=== PATIENT | female | born 2000 | race Caucasian/White ===

== ENCOUNTER 2018-08-29 17:22 | Emergency (ER) | payer MEDICAID ==
[~2018-08-29] VITALS: Ht 154.9 cm; Wt 56.8 kg
[2018-08-29 17:27] VITALS: BP 114/78
[2018-08-29] MEDS ORDERED: CEPH500C5 PO (17:40)
[2018-08-29] MEDS ORDERED: SULF1TAB49 PO (17:40)
[2018-08-29] MEDS ORDERED: IBUP-1984 PO (17:41)
== END 2018-08-29 18:00 | disposition home or self-care (01) ==
LOC: ER 17:23
DX: L00 Staphylococcal scalded skin syndrome (principal); F17.200 Nicotine dependence, unspecified, uncomplicated; V89.2XXA Person injured in unspecified motor-vehicle accident, traffic, initial encounter; Y93.89 Activity, other specified; Y92.89 Other specified places as the place of occurrence of the external cause; Y99.8 Other external cause status
CPT/HCPCS: 99283

== ENCOUNTER 2018-12-11 23:42 | Emergency (ER) | payer MEDICAID ==
[~2018-12-11] VITALS: Ht 157.5 cm; Wt 64.4 kg
[~2018-12-11 23:42] MED LIST: CEPH500C5 PO
[2018-12-11 23:50] VITALS: BP 131/92
== END 2018-12-12 02:39 | disposition left against medical advice (07) ==
LOC: ER 23:43
DX: R68.84 Jaw pain (principal); Z53.21 Procedure and treatment not carried out due to patient leaving prior to being seen by health care provider

== ENCOUNTER 2019-12-15 23:16 | Emergency (ER) | payer MEDICAID ==
[~2019-12-15] VITALS: Ht 154.9 cm; Wt 59.0 kg
[2019-12-15 23:21] VITALS: BP 122/85
== END 2019-12-16 00:20 | disposition left against medical advice (07) ==
LOC: ER 23:16
DX: M25.532 Pain in left wrist (principal)
CPT/HCPCS: 73110; 99283

== ENCOUNTER 2020-02-29 19:28 | Emergency (ER) | payer MEDICAID ==
[~2020-02-29] VITALS: Ht 157.5 cm; Wt 61.4 kg
[2020-02-29 19:32] VITALS: BP 114/74
== END 2020-02-29 20:03 | disposition home or self-care (01) ==
LOC: ER 19:29
DX: M54.2 Cervicalgia (principal); Z60.2 Problems related to living alone
CPT/HCPCS: 99281

== ENCOUNTER 2021-05-20 15:51 | Emergency (ER) | payer MEDICAID ==
[~2021-05-20] VITALS: Ht 160 cm; Wt 63.8 kg
[2021-05-20 15:56] VITALS: BP 122/74
== END 2021-05-20 17:46 | disposition home or self-care (01) ==
LOC: ER 15:53
DX: O46.8X1 Other antepartum hemorrhage, first trimester (principal); F17.210 Nicotine dependence, cigarettes, uncomplicated; Z3A.01 Less than 8 weeks gestation of pregnancy
CPT/HCPCS: 36415; 84702; 99283